=== PATIENT | female | born 1955 | race Hispanic/Latino ===

== ENCOUNTER 2019-10-18 21:30 | Inpatient (IN) | payer MEDICARE ==
[2019-10-19] MEDS ORDERED: ACETAMINOPHEN 325 MG TAB PO PRN (03:09)
[2019-10-19] MEDS ORDERED: MAGNESIUM HYDROXIDE (MOM) ORAL LIQD UDC PO PRN (03:09)
--- NOTE | 2019-10-19 03:22 | History and Physical Report ---
History of Present Illness Date of examination: 10/19/19 Date of admission: 10/19/19 02:50 Chief complaint: Left hip fracture status post surgery History of present illness: Patient is a 64-year-old white female. Referred from [facility] for further care in this facility. She had a fall few days ago and has had surgery at [facility] and currently undergoing some physical therapy. Patient indicates that she was in the bathroom and suddenly slipped and fell resulting in a fracture of her left hip. She denies any headache, denies any head injury, denies any chest pain or shortness of breath, no fever or chills. She complains of having pain on the left hip and has been taking some oral analgesic medication with some relief. Past History Past Medical History: anemia, arthritis, diabetes, hypertension Past Surgical History: hysterectomy Social history: smoking (Less than half a pack of cigarette daily) Family history: no significant family history Medications and Allergies Allergies Allergy/AdvReac Type Severity Reaction Status Date / Time Corticosteroids Allergy Unknown Unknown Verified 10/19/19 04:47 (Glucocorticoids) latex Allergy Unknown Unknown Verified 10/19/19 04:41 prednisone Allergy Unknown Unknown Verified 10/19/19 04:47 Sulfa (Sulfonamide Allergy Unknown Unknown Verified 10/19/19 04:48 Antibiotics) Iodine Allergy Unknown Unknown Uncoded 10/19/19 04:42 Active Meds: Active Medications Acetaminophen (Tylenol) 650 mg PO Q4H PRN PRN Reason: Pain MILD(1-3)/Fever >100.5/[place] Enoxaparin Sodium (Enoxaparin) 40 mg SUB-Q QDAY [facility] Sodium Chloride (Nacl 0.9% 1000 Ml) 1,000 mls @ 75 mls/hr IV DIRECT SALLY Magnesium Hydroxide (Milk Of Magnesia) 30 ml PO Q4H PRN PRN Reason: Constipation Morphine Sulfate (Morphine) 2 mg IV Q4H PRN PRN Reason: Pain, Moderate (4-6) Ondansetron HCl (Zofran) 4 mg IV Q8H PRN PRN Reason: Nausea And Vomiting Sodium Chloride (Sodium Chloride Flush Syringe 10 Ml) 10 ml IV BID SALLY Sodium Chloride (Sodium Chloride Flush Syringe 10 Ml) 10 ml IV PRN PRN PRN Reason: LINE FLUSH Review of Systems Musculoskeletal: other (Left hip pain) Exam - Constitutional General appearance: Present: no acute distress, mild distress (Secondary to pain) - EENT Eyes: Present: PERRL, EOM intact ENT: hearing intact, clear oral mucosa, dentition normal - Neck Neck: Present: supple, normal ROM - Respiratory Respiratory effort: normal Respiratory: bilateral: CTA - Cardiovascular Rhythm: regular Heart Sounds: Present: S1 & S2 - Extremities Extremities: no ischemia, pulses intact, No edema, Full ROM Extremity abnormal: other (Dressing over surgical site on the left hip) Peripheral Pulses: within normal limits - Abdominal General gastrointestinal: Present: soft, non-tender, non-distended - Integumentary Integumentary: Present: clear, warm, dry - Musculoskeletal Musculoskeletal: strength equal bilaterally - Psychiatric Psychiatric: appropriate mood/affect, intact judgment & insight, cooperative - Neurologic Neurologic: CNII-XII intact, moves all extremities Assessment and Plan - Patient Problems (1) Closed left hip fracture Current Visit: Yes Status: Acute Plan to address problem: She is status post surgery. We will place a consult to physical therapy for evaluation and recommendation. (2) Hypertension Current Visit: Yes Status: Acute Plan to address problem: Blood pressure stable we will continue routine home medications. (3) Diabetes mellitus Current Visit: Yes Status: Acute Plan to address problem: We will monitor Accu-Cheks. (4) DVT prophylaxis Current Visit: Yes Status: Acute (5) Full code status Current Visit: Yes Status: Acute
[2019-10-19] MEDS: MORPHINE 2 MG/1 ML INJ IV PRN ×3 (05:22→14:08)
[2019-10-19] MEDS: ONDANSETRON 4 MG/2 ML INJ IV PRN ×2 (05:22→14:08)
[2019-10-19] MEDS: SODIUM CHLORIDE 0.9% 1000 ML 1,000 ML IV SCH ×2 (05:22→17:07)
[2019-10-19 07:26] LABS: Basophils % (Auto) 0.5 % (0.0-1.8); Eosinophils # (Auto) 0.2 K/mm3 (0.0-0.4); Eosinophils % (Auto) 3.8 % (0.0-4.3); Hematocrit 26.9 % (30.3-42.9); Hemoglobin 8.8 gm/dl (10.1-14.3); Lymphocytes # (Auto) 1.6 K/mm3 (1.2-5.4); Lymphocytes % (Auto) 24.6 % (13.4-35.0); Mean Corpuscular HGB Conc 33 % (30-34); Mean Corpuscular Volume 82 fl (79-97); Monocytes # (Auto) 0.4 K/mm3 (0.0-0.8); Monocytes % (Auto) 6.3 % (0.0-7.3); Platelet Count 306 K/mm3 (140-440); Red Blood Count 3.26 M/mm3 (3.65-5.03); Red Cell Distribution Width 16.2 % (13.2-15.2)
[2019-10-19 07:34] LABS: INR 1.03 (0.87-1.13)
[2019-10-19 07:35] LABS: Partial Thromboplastin Time 32.8 Sec. (24.2-36.6)
[2019-10-19 07:48] LABS: BUN/Creatinine Ratio 28; Blood Urea Nitrogen 11 mg/dL (7-17); Calcium 8.5 mg/dL (8.4-10.2); Hemolysis Index 8
[2019-10-19] MEDS: ENOXAPARIN 40 MG/0.4 ML INJ SUB-Q SCH ×2 (09:51→09:55)
--- NOTE | 2019-10-19 11:51 | Progress Note ---
History Interval history: No new issues overnight Hospitalist Physical - Constitutional Vitals: Temp Pulse Resp BP Pulse Ox 98.2 F 69 18 152/68 99 10/19/19 08:00 10/19/19 08:00 10/19/19 08:00 10/19/19 08:00 10/19/19 08:00 General appearance: Present: no acute distress, mild distress (Secondary to pain) Results - Labs CBC & Chem 7: 10/19/19 06:44 10/19/19 06:44 Labs: Laboratory Last Values WBC 6.5 K/mm3 (4.5-11.0) 10/19/19 06:44 RBC 3.26 M/mm3 (3.65-5.03) L 10/19/19 06:44 Hgb 8.8 gm/dl (10.1-14.3) L 10/19/19 06:44 Hct 26.9 % (30.3-42.9) L 10/19/19 06:44 MCV 82 fl (79-97) 10/19/19 06:44 MCH 27 pg (28-32) L 10/19/19 06:44 MCHC 33 % (30-34) 10/19/19 06:44 RDW 16.2 % (13.2-15.2) H 10/19/19 06:44 Plt Count 306 K/mm3 (140-440) 10/19/19 06:44 Lymph % (Auto) 24.6 % (13.4-35.0) 10/19/19 06:44 [place] % (Auto) 6.3 % (0.0-7.3) 10/19/19 06:44 Eos % (Auto) 3.8 % (0.0-4.3) 10/19/19 06:44 Baso % (Auto) 0.5 % (0.0-1.8) 10/19/19 06:44 Lymph # 1.6 K/mm3 (1.2-5.4) 10/19/19 06:44 [place] # 0.4 K/mm3 (0.0-0.8) 10/19/19 06:44 Eos # 0.2 K/mm3 (0.0-0.4) 10/19/19 06:44 Baso # 0.0 K/mm3 (0.0-0.1) 10/19/19 06:44 Seg Neutrophils % 64.8 % (40.0-70.0) 10/19/19 06:44 Seg Neutrophils # 4.2 K/mm3 (1.8-7.7) 10/19/19 06:44 PT 13.6 Sec. (12.2-14.9) 10/19/19 06:44 INR 1.03 (0.87-1.13) 10/19/19 06:44 APTT 32.8 Sec. (24.2-36.6) 10/19/19 06:44 Sodium 136 mmol/L (137-145) L 10/19/19 06:44 Potassium 3.6 mmol/L (3.6-5.0) 10/19/19 06:44 Chloride 103.0 mmol/L (98-107) 10/19/19 06:44 Carbon Dioxide 18 mmol/L (22-30) L 10/19/19 06:44 Anion Gap 19 mmol/L 10/19/19 06:44 BUN 11 mg/dL (7-17) 10/19/19 06:44 Creatinine 0.4 mg/dL (0.7-1.2) L 10/19/19 06:44 Estimated GFR > 60 ml/min 10/19/19 06:44 BUN/Creatinine Ratio 28 % 10/19/19 06:44 Glucose 155 mg/dL (65-100) H 10/19/19 06:44 POC Glucose 171 (70-105) H 10/19/19 08:12 Calcium 8.5 mg/dL (8.4-10.2) 10/19/19 06:44 Active Medications - Current Medications Current Medications: Generic Name Dose Route Start Last Admin Trade Name Freq PRN Reason Stop Dose Admin Acetaminophen 650 mg 10/19/19 03:09 Tylenol PO Q4H PRN Pain MILD(1-3)/Fever >100.5/[place] Enoxaparin Sodium 40 mg 10/19/19 08:00 10/19/19 09:55 Enoxaparin SUB-Q 40 mg QDAY SALLY Administration Sodium Chloride 1,000 mls @ 75 mls/hr 10/19/19 03:15 10/19/19 05:22 Nacl 0.9% 1000 Ml IV 75 mls/hr DIRECT SALLY Administration Magnesium Hydroxide 30 ml 10/19/19 03:09 Milk Of Magnesia PO Q4H PRN Constipation Morphine Sulfate 2 mg 10/19/19 03:09 10/19/19 09:58 Morphine IV 2 mg Q4H PRN Administration Pain, Moderate (4-6) Ondansetron HCl 4 mg 10/19/19 03:09 10/19/19 05:22 Zofran IV 4 mg Q8H PRN Administration Nausea And Vomiting Sodium Chloride 10 ml 10/19/19 08:00 10/19/19 09:56 Sodium Chloride Flush Syringe 10 Ml IV 10 ml BID SALLY Administration Sodium Chloride 10 ml 10/19/19 03:09 Sodium Chloride Flush Syringe 10 Ml IV PRN PRN LINE FLUSH
[2019-10-19] MEDS ORDERED: SUMATRIPTAN SUCCINATE 100 MG PO PRN (12:01)
--- NOTE | 2019-10-19 12:05 | Progress Note ---
Assessment and Plan Assessment and plan: Recent left hip fracture status post surgery. PT/OT. Pain control. Hypertension. Resume antihypertensive medications. Diabetes mellitus type 2. Continue Accu-Cheks and sliding scale insulin. Disposition. Await placement. History Interval history: No new issues overnight Hospitalist Physical - Constitutional Vitals: Temp Pulse Resp BP Pulse Ox 98.2 F 69 18 152/68 99 10/19/19 08:00 10/19/19 08:00 10/19/19 08:00 10/19/19 08:00 10/19/19 08:00 General appearance: Present: no acute distress - EENT Eyes: Present: PERRL, EOM intact ENT: hearing intact, clear oral mucosa, dentition normal - Neck Neck: Present: supple, normal ROM - Respiratory Respiratory effort: normal Respiratory: bilateral: CTA - Cardiovascular Rhythm: regular Heart Sounds: Present: S1 & S2. Absent: gallop, rub - Extremities Extremities: no ischemia, No edema, Full ROM - Abdominal General gastrointestinal: soft, non-tender, non-distended, normal bowel sounds - Integumentary Integumentary: Present: clear, warm, dry - Neurologic Neurologic: CNII-XII intact, moves all extremities Results - Labs CBC & Chem 7: 10/19/19 06:44 10/19/19 06:44 Labs: Laboratory Last Values WBC 6.5 K/mm3 (4.5-11.0) 10/19/19 06:44 RBC 3.26 M/mm3 (3.65-5.03) L 10/19/19 06:44 Hgb 8.8 gm/dl (10.1-14.3) L 10/19/19 06:44 Hct 26.9 % (30.3-42.9) L 10/19/19 06:44 MCV 82 fl (79-97) 10/19/19 06:44 MCH 27 pg (28-32) L 10/19/19 06:44 MCHC 33 % (30-34) 10/19/19 06:44 RDW 16.2 % (13.2-15.2) H 10/19/19 06:44 Plt Count 306 K/mm3 (140-440) 10/19/19 06:44 Lymph % (Auto) 24.6 % (13.4-35.0) 10/19/19 06:44 [place] % (Auto) 6.3 % (0.0-7.3) 10/19/19 06:44 Eos % (Auto) 3.8 % (0.0-4.3) 10/19/19 06:44 Baso % (Auto) 0.5 % (0.0-1.8) 10/19/19 06:44 Lymph # 1.6 K/mm3 (1.2-5.4) 10/19/19 06:44 [place] # 0.4 K/mm3 (0.0-0.8) 10/19/19 06:44 Eos # 0.2 K/mm3 (0.0-0.4) 10/19/19 06:44 Baso # 0.0 K/mm3 (0.0-0.1) 10/19/19 06:44 Seg Neutrophils % 64.8 % (40.0-70.0) 10/19/19 06:44 Seg Neutrophils # 4.2 K/mm3 (1.8-7.7) 10/19/19 06:44 PT 13.6 Sec. (12.2-14.9) 10/19/19 06:44 INR 1.03 (0.87-1.13) 10/19/19 06:44 APTT 32.8 Sec. (24.2-36.6) 10/19/19 06:44 Sodium 136 mmol/L (137-145) L 10/19/19 06:44 Potassium 3.6 mmol/L (3.6-5.0) 10/19/19 06:44 Chloride 103.0 mmol/L (98-107) 10/19/19 06:44 Carbon Dioxide 18 mmol/L (22-30) L 10/19/19 06:44 Anion Gap 19 mmol/L 10/19/19 06:44 BUN 11 mg/dL (7-17) 10/19/19 06:44 Creatinine 0.4 mg/dL (0.7-1.2) L 10/19/19 06:44 Estimated GFR > 60 ml/min 10/19/19 06:44 BUN/Creatinine Ratio 28 % 10/19/19 06:44 Glucose 155 mg/dL (65-100) H 10/19/19 06:44 POC Glucose 200 (70-105) H 10/19/19 11:34 Calcium 8.5 mg/dL (8.4-10.2) 10/19/19 06:44 Active Medications - Current Medications Current Medications: Generic Name Dose Route Start Last Admin Trade Name Freq PRN Reason Stop Dose Admin Acetaminophen 650 mg 10/19/19 03:09 Tylenol PO Q4H PRN Pain MILD(1-3)/Fever >100.5/[place] Enoxaparin Sodium 40 mg 10/19/19 08:00 10/19/19 09:55 Enoxaparin SUB-Q 40 mg QDAY SALLY Administration Sodium Chloride 1,000 mls @ 75 mls/hr 10/19/19 03:15 10/19/19 05:22 Nacl 0.9% 1000 Ml IV 75 mls/hr DIRECT SALLY Administration Magnesium Hydroxide 30 ml 10/19/19 03:09 Milk Of Magnesia PO Q4H PRN Constipation Morphine Sulfate 2 mg 10/19/19 03:09 10/19/19 09:58 Morphine IV 2 mg Q4H PRN Administration Pain, Moderate (4-6) Ondansetron HCl 4 mg 10/19/19 03:09 10/19/19 05:22 Zofran IV 4 mg Q8H PRN Administration Nausea And Vomiting Sodium Chloride 10 ml 10/19/19 08:00 10/19/19 09:56 Sodium Chloride Flush Syringe 10 Ml IV 10 ml BID SALLY Administration Sodium Chloride 10 ml 10/19/19 03:09 Sodium Chloride Flush Syringe 10 Ml IV PRN PRN LINE FLUSH
[2019-10-19] MEDS: oxyCODONE /ACETAMINOPHEN 5-325MG TAB PO PRN ×3 (13:15→22:07)
[2019-10-19] MEDS ORDERED: SUMAtriptan SUCCINATE 50 MG TAB PO PRN (13:18)
[2019-10-19] MEDS: glipiZIDE 5 MG TAB PO SCH (17:01)
[2019-10-19] MEDS: metFORMIN 500 MG TAB PO SCH (17:01)
[2019-10-19] MEDS: PANTOPRAZOLE 20 MG TAB PO SCH (17:13)
[2019-10-19] MEDS ORDERED: NON-FORMULARY EACH (Montelukast 10 MG) PO SCH (22:00)
[2019-10-19] MEDS ORDERED: NON-FORMULARY EACH (Metformin 1,000 MG) PO SCH (22:00)
[2019-10-19] MEDS ORDERED: SENNOSIDES 8.6 MG PO SCH (22:00)
[2019-10-19] MEDS: SENNOSIDES 8.6 MG TAB PO SCH (22:07)
[2019-10-19] MEDS: TOPIRAMATE TAB 100 MG TAB PO SCH (22:07)
[2019-10-19] MEDS: MONTELUKAST 10 MG TAB PO SCH (22:07)
[2019-10-20] MEDS: MORPHINE 2 MG/1 ML INJ IV PRN ×3 (01:33→10:17)
[2019-10-20] MEDS: oxyCODONE /ACETAMINOPHEN 5-325MG TAB PO PRN ×4 (04:36→22:33)
[2019-10-20] MEDS: SODIUM CHLORIDE 0.9% 1000 ML 1,000 ML IV SCH ×2 (04:41→17:32)
[2019-10-20] MEDS: metFORMIN 500 MG TAB PO SCH ×2 (08:30→17:31)
[2019-10-20] MEDS: glipiZIDE 5 MG TAB PO SCH ×2 (08:38→17:31)
[2019-10-20] MEDS ORDERED: NON-FORMULARY EACH (Lisinopril 2.5 MG) PO SCH (10:00)
[2019-10-20] MEDS ORDERED: NON-FORMULARY EACH (Cymbalta 30 MG) PO SCH (10:00)
[2019-10-20] MEDS ORDERED: PANTOPRAZOLE 20 MG TAB PO SCH (10:00)
[2019-10-20] MEDS: SENNOSIDES 8.6 MG TAB PO SCH ×2 (10:15→22:31)
[2019-10-20] MEDS: DULoxetine 30 MG CAP PO SCH (10:15)
[2019-10-20] MEDS: PANTOPRAZOLE 20 MG TAB PO SCH (10:15)
[2019-10-20] MEDS: TOPIRAMATE TAB 100 MG TAB PO SCH ×2 (10:15→22:32)
[2019-10-20] MEDS: ASPIRIN EC 81 MG TAB PO SCH ×2 (10:16→10:34)
[2019-10-20] MEDS: LISINOPRIL 5 MG TAB PO SCH (10:16)
[2019-10-20] MEDS: ENOXAPARIN 40 MG/0.4 ML INJ SUB-Q SCH (10:17)
--- NOTE | 2019-10-20 12:58 | Progress Note ---
Assessment and Plan Assessment and plan: Recent left hip fracture status post surgery. PT/OT. Pain control. Hypertension. Resume antihypertensive medications. Diabetes mellitus type 2. Continue Accu-Cheks and sliding scale insulin. Disposition. Await placement. History Interval history: Patient continues to complain of pain Hospitalist Physical - Constitutional Vitals: Temp Pulse Resp BP Pulse Ox 97.6 F 73 16 177/82 100 10/20/19 11:07 10/20/19 11:07 10/20/19 11:07 10/20/19 11:07 10/20/19 11:07 General appearance: Present: no acute distress - EENT Eyes: Present: PERRL, EOM intact ENT: hearing intact, clear oral mucosa, dentition normal - Neck Neck: Present: supple, normal ROM - Respiratory Respiratory effort: normal Respiratory: bilateral: CTA - Cardiovascular Rhythm: regular Heart Sounds: Present: S1 & S2. Absent: gallop, rub - Extremities Extremities: no ischemia, No edema, Full ROM - Abdominal General gastrointestinal: soft, non-tender, non-distended, normal bowel sounds - Integumentary Integumentary: Present: clear, warm, dry - Neurologic Neurologic: CNII-XII intact, moves all extremities Results - Labs CBC & Chem 7: 10/19/19 06:44 10/19/19 06:44 Labs: Laboratory Last Values WBC 6.5 K/mm3 (4.5-11.0) 10/19/19 06:44 RBC 3.26 M/mm3 (3.65-5.03) L 10/19/19 06:44 Hgb 8.8 gm/dl (10.1-14.3) L 10/19/19 06:44 Hct 26.9 % (30.3-42.9) L 10/19/19 06:44 MCV 82 fl (79-97) 10/19/19 06:44 MCH 27 pg (28-32) L 10/19/19 06:44 MCHC 33 % (30-34) 10/19/19 06:44 RDW 16.2 % (13.2-15.2) H 10/19/19 06:44 Plt Count 306 K/mm3 (140-440) 10/19/19 06:44 Lymph % (Auto) 24.6 % (13.4-35.0) 10/19/19 06:44 [place] % (Auto) 6.3 % (0.0-7.3) 10/19/19 06:44 Eos % (Auto) 3.8 % (0.0-4.3) 10/19/19 06:44 Baso % (Auto) 0.5 % (0.0-1.8) 10/19/19 06:44 Lymph # 1.6 K/mm3 (1.2-5.4) 10/19/19 06:44 [place] # 0.4 K/mm3 (0.0-0.8) 10/19/19 06:44 Eos # 0.2 K/mm3 (0.0-0.4) 10/19/19 06:44 Baso # 0.0 K/mm3 (0.0-0.1) 10/19/19 06:44 Seg Neutrophils % 64.8 % (40.0-70.0) 10/19/19 06:44 Seg Neutrophils # 4.2 K/mm3 (1.8-7.7) 10/19/19 06:44 PT 13.6 Sec. (12.2-14.9) 10/19/19 06:44 INR 1.03 (0.87-1.13) 10/19/19 06:44 APTT 32.8 Sec. (24.2-36.6) 10/19/19 06:44 Sodium 136 mmol/L (137-145) L 10/19/19 06:44 Potassium 3.6 mmol/L (3.6-5.0) 10/19/19 06:44 Chloride 103.0 mmol/L (98-107) 10/19/19 06:44 Carbon Dioxide 18 mmol/L (22-30) L 10/19/19 06:44 Anion Gap 19 mmol/L 10/19/19 06:44 BUN 11 mg/dL (7-17) 10/19/19 06:44 Creatinine 0.4 mg/dL (0.7-1.2) L 10/19/19 06:44 Estimated GFR > 60 ml/min 10/19/19 06:44 BUN/Creatinine Ratio 28 % 10/19/19 06:44 Glucose 155 mg/dL (65-100) H 10/19/19 06:44 POC Glucose 187 (70-105) H 10/20/19 11:38 Calcium 8.5 mg/dL (8.4-10.2) 10/19/19 06:44 Active Medications - Current Medications Current Medications: Generic Name Dose Route Start Last Admin Trade Name Freq PRN Reason Stop Dose Admin Acetaminophen 650 mg 10/19/19 03:09 Tylenol PO Q4H PRN Pain MILD(1-3)/Fever >100.5/[place] Aspirin 81 mg 10/20/19 10:00 10/20/19 10:34 Halfprin Ec PO Not Given QDAY SALLY Duloxetine HCl 30 mg 10/20/19 10:00 10/20/19 10:15 Cymbalta PO Not Given QDAY SALLY Enoxaparin Sodium 40 mg 10/19/19 08:00 10/20/19 10:17 Enoxaparin SUB-Q 40 mg QDAY SALLY Administration Glipizide 5 mg 10/19/19 17:00 10/20/19 08:38 Glucotrol PO 5 mg BIDDIAB SALLY Administration Sodium Chloride 1,000 mls @ 75 mls/hr 10/19/19 03:15 10/20/19 04:41 Nacl 0.9% 1000 Ml IV 75 mls/hr DIRECT SALLY Administration Lisinopril 2.5 mg 10/20/19 10:00 10/20/19 10:16 Zestril PO 2.5 mg QDAY SALLY Administration Magnesium Hydroxide 30 ml 10/19/19 03:09 Milk Of Magnesia PO Q4H PRN Constipation Metformin HCl 1,000 mg 10/19/19 17:00 10/20/19 08:30 Glucophage PO 1,000 mg BIDDIAB SALLY Administration Methocarbamol 750 mg 10/19/19 14:00 10/20/19 08:38 Robaxin PO 750 mg TID SALLY Administration Montelukast Sodium 10 mg 10/19/19 22:00 10/19/19 22:07 Singulair PO 10 mg QHS SALLY Administration Morphine Sulfate 2 mg 10/19/19 03:09 10/20/19 10:17 Morphine IV 2 mg Q4H PRN Administration Pain, Moderate (4-6) Ondansetron HCl 4 mg 10/19/19 03:09 10/19/19 14:08 Zofran IV 4 mg Q8H PRN Administration Nausea And Vomiting Oxycodone/Acetaminophen 1 tab 10/19/19 12:01 10/20/19 12:36 Percocet 5/325 PO 1 tab Q4HR PRN Administration Pain , Severe (7-10) Pantoprazole Sodium 20 mg 10/19/19 13:58 10/20/19 10:15 Protonix PO 20 mg QDAY SALLY Administration Senna 8.6 mg 10/19/19 22:00 10/20/19 10:15 Senokot PO 8.6 mg BID SALLY Administration Sodium Chloride 10 ml 10/19/19 08:00 10/20/19 10:22 Sodium Chloride Flush Syringe 10 Ml IV Not Given BID SALLY Sodium Chloride 10 ml 10/19/19 03:09 Sodium Chloride Flush Syringe 10 Ml IV PRN PRN LINE FLUSH Sumatriptan Succinate 100 mg 10/19/19 13:18 Imitrex PO Q24H PRN Migraine Headache Topiramate 100 mg 10/19/19 22:00 10/20/19 10:15 Topamax PO 100 mg BID SALLY Administration Nutrition/Malnutrition Assess - Dietary Evaluation Nutrition/Malnutrition Findings: Nutrition Notes Start: 10/19/19 11:43 Freq: Status: Active Protocol: Document 10/19/19 11:45 PS (Rec: 10/19/19 12:43 PS [id number]) Co-Sign 10/19/19 11:45 LM Nutrition Notes Need for Assessment generated from: Low BMI Initial or Follow up Assessment Current Diagnosis Diabetes,Hypertension Other Pertinent Diagnosis anemia, arthritis, DVT prophylaxis Current Diet Consistent Carbohydrate Labs/Tests Na 136 Cr 0.4 Glu 155 Pertinent Medications Zofran Milk of Magnesia Height 5 ft 2 in Weight 44.5 kg Usual Body Weight 49 kg [place] Body Weight (kg) 50.00 BMI 17.9 Intake Prior to Admission Poor Weight change and time frame 10 lbs in 1 month Weight Status Underweight Subjective/Other Information Pt. stated she has not been eating well [employer] d/t nausea and that she has lost 10 lbs in the last month. Pt. wants to eat but ate 0% of breakfast d/ t nausea. ONS were offered but pt. denied. Burn Absent Trauma Absent GI Symptoms Nausea Current % PO Poor (25-49%) Minimum of two criteria Yes Energy Intake (severe) < or equal to 50% Estimated Energy Requirement > or equal to 5 days Interpretation of Weight Loss (severe) >5% in 1 month Body Fat Depletion Moderate depletion (severe) Muscle Mass Mild Depletion (non-severe) #2 Nutrition Diagnosis Malnutrition Etiology nausea and recent surgery As Evidenced by Signs and Symptoms < or equal to 50% of estimated energy needs in > or equal to 5 days. >5% wt loss in 1 month and moderate body fat depletion and mild muscle depletion #1 Nutrition Diagnosis Inadequate energy intake Etiology nausea As Evidenced by Signs and Symptoms pt. eating <50% of meals for > 5 days and 10 lb wt loss in 1 month Is patient on ventilator? No Is Patient Ambulatory and/or Out of Bed Yes REE-([facility]-ambulatory/OOB) [ 1226.225 [id number]] Kcal/Kg value to use for calculation 39 Approximate Energy Requirements Using 1736 kcal/Kg Additional Notes Pro: 45 - 53 (1-1.2 g/kg) Fluids: 1 ml/kcal Nutrition Intervention Change Diet Order: Continue Current Diet Goal #1 Meet 75% of energy/protein needs Anticipated Discharge Needs: Consistent Carbohydrate Diet Follow-Up By: 10/24/19 Additional Comments Follow up for PO intakes
[2019-10-20] MEDS: MONTELUKAST 10 MG TAB PO SCH (22:31)
[2019-10-21] MEDS: ONDANSETRON 4 MG/2 ML INJ IV PRN ×3 (01:13→17:11)
[2019-10-21] MEDS: oxyCODONE /ACETAMINOPHEN 5-325MG TAB PO PRN ×5 (03:40→21:45)
[2019-10-21 06:06] LABS: Basophils % (Auto) 0.6 % (0.0-1.8); Eosinophils # (Auto) 0.2 K/mm3 (0.0-0.4); Eosinophils % (Auto) 4.1 % (0.0-4.3); Hematocrit 24.5 % (30.3-42.9); Hemoglobin 8.1 gm/dl (10.1-14.3); Lymphocytes # (Auto) 1.4 K/mm3 (1.2-5.4); Lymphocytes % (Auto) 23.5 % (13.4-35.0); Mean Corpuscular HGB Conc 33 % (30-34); Mean Corpuscular Volume 82 fl (79-97); Monocytes # (Auto) 0.4 K/mm3 (0.0-0.8); Monocytes % (Auto) 6.5 % (0.0-7.3); Platelet Count 374 K/mm3 (140-440); Red Blood Count 2.99 M/mm3 (3.65-5.03); Red Cell Distribution Width 16.3 % (13.2-15.2)
[2019-10-21 06:24] LABS: BUN/Creatinine Ratio 33; Blood Urea Nitrogen 13 mg/dL (7-17); Calcium 8.1 mg/dL (8.4-10.2); Hemolysis Index 0
[2019-10-21] MEDS: PANTOPRAZOLE 20 MG TAB PO SCH ×2 (08:33→10:00)
[2019-10-21] MEDS: metFORMIN 500 MG TAB PO SCH ×2 (08:33→17:11)
[2019-10-21] MEDS: glipiZIDE 5 MG TAB PO SCH ×2 (08:33→17:11)
[2019-10-21] MEDS: LISINOPRIL 5 MG TAB PO SCH ×2 (08:34→10:00)
[2019-10-21] MEDS: TOPIRAMATE TAB 100 MG TAB PO SCH ×3 (08:35→21:46)
[2019-10-21] MEDS: ENOXAPARIN 40 MG/0.4 ML INJ SUB-Q SCH ×2 (08:37→10:00)
[2019-10-21] MEDS: SENNOSIDES 8.6 MG TAB PO SCH ×2 (09:13→21:45)
[2019-10-21] MEDS: DULoxetine 30 MG CAP PO SCH (09:14)
[2019-10-21] MEDS: ASPIRIN EC 81 MG TAB PO SCH (09:16)
--- NOTE | 2019-10-21 11:17 | Progress Note ---
Assessment and Plan Assessment and plan: Recent left hip fracture status post surgery. PT/OT. Pain control. Hypertension. Resume antihypertensive medications. Diabetes mellitus type 2. Continue Accu-Cheks and sliding scale insulin. Disposition. Await placement. History Interval history: Patient continues to complain of pain Hospitalist Physical - Constitutional Vitals: Temp Pulse Resp BP Pulse Ox 98.0 F 68 18 134/69 100 10/21/19 07:14 10/21/19 08:34 10/21/19 07:14 10/21/19 08:34 10/21/19 07:14 General appearance: Present: no acute distress - EENT Eyes: Present: PERRL, EOM intact ENT: hearing intact, clear oral mucosa, dentition normal - Neck Neck: Present: supple, normal ROM - Respiratory Respiratory effort: normal Respiratory: bilateral: CTA - Cardiovascular Rhythm: regular Heart Sounds: Present: S1 & S2. Absent: gallop, rub - Extremities Extremities: no ischemia, No edema, Full ROM - Abdominal General gastrointestinal: soft, non-tender, non-distended, normal bowel sounds - Integumentary Integumentary: Present: clear, warm, dry - Neurologic Neurologic: CNII-XII intact, moves all extremities Results - Labs CBC & Chem 7: 10/21/19 05:50 10/21/19 05:50 Labs: Laboratory Last Values WBC 6.1 K/mm3 (4.5-11.0) 10/21/19 05:50 RBC 2.99 M/mm3 (3.65-5.03) L 10/21/19 05:50 Hgb 8.1 gm/dl (10.1-14.3) L 10/21/19 05:50 Hct 24.5 % (30.3-42.9) L 10/21/19 05:50 MCV 82 fl (79-97) 10/21/19 05:50 MCH 27 pg (28-32) L 10/21/19 05:50 MCHC 33 % (30-34) 10/21/19 05:50 RDW 16.3 % (13.2-15.2) H 10/21/19 05:50 Plt Count 374 K/mm3 (140-440) 10/21/19 05:50 Lymph % (Auto) 23.5 % (13.4-35.0) 10/21/19 05:50 [place] % (Auto) 6.5 % (0.0-7.3) 10/21/19 05:50 Eos % (Auto) 4.1 % (0.0-4.3) 10/21/19 05:50 Baso % (Auto) 0.6 % (0.0-1.8) 10/21/19 05:50 Lymph # 1.4 K/mm3 (1.2-5.4) 10/21/19 05:50 [place] # 0.4 K/mm3 (0.0-0.8) 10/21/19 05:50 Eos # 0.2 K/mm3 (0.0-0.4) 10/21/19 05:50 Baso # 0.0 K/mm3 (0.0-0.1) 10/21/19 05:50 Seg Neutrophils % 65.3 % (40.0-70.0) 10/21/19 05:50 Seg Neutrophils # 4.0 K/mm3 (1.8-7.7) 10/21/19 05:50 PT 13.6 Sec. (12.2-14.9) 10/19/19 06:44 INR 1.03 (0.87-1.13) 10/19/19 06:44 APTT 32.8 Sec. (24.2-36.6) 10/19/19 06:44 Sodium 137 mmol/L (137-145) 10/21/19 05:50 Potassium 3.4 mmol/L (3.6-5.0) L 10/21/19 05:50 Chloride 108.4 mmol/L (98-107) H 10/21/19 05:50 Carbon Dioxide 18 mmol/L (22-30) L 10/21/19 05:50 Anion Gap 14 mmol/L 10/21/19 05:50 BUN 13 mg/dL (7-17) 10/21/19 05:50 Creatinine 0.4 mg/dL (0.7-1.2) L 10/21/19 05:50 Estimated GFR > 60 ml/min 10/21/19 05:50 BUN/Creatinine Ratio 33 % 10/21/19 05:50 Glucose 209 mg/dL (65-100) H 10/21/19 05:50 POC Glucose 186 (70-105) H 10/21/19 11:17 Calcium 8.1 mg/dL (8.4-10.2) L 10/21/19 05:50 Active Medications - Current Medications Current Medications: Generic Name Dose Route Start Last Admin Trade Name Freq PRN Reason Stop Dose Admin Acetaminophen 650 mg 10/19/19 03:09 Tylenol PO Q4H PRN Pain MILD(1-3)/Fever >100.5/[place] Aspirin 81 mg 10/20/19 10:00 10/21/19 09:16 Halfprin Ec PO Not Given QDAY SALLY Duloxetine HCl 30 mg 10/20/19 10:00 10/21/19 09:14 Cymbalta PO Not Given QDAY SALLY Enoxaparin Sodium 40 mg 10/19/19 08:00 10/21/19 08:37 Enoxaparin SUB-Q 40 mg QDAY SALLY Administration Glipizide 5 mg 10/19/19 17:00 10/21/19 08:33 Glucotrol PO 5 mg BIDDIAB SALLY Administration Sodium Chloride 1,000 mls @ 75 mls/hr 10/19/19 03:15 10/21/19 07:06 Nacl 0.9% 1000 Ml IV Infused DIRECT SALLY Infusion Lisinopril 2.5 mg 10/20/19 10:00 10/21/19 08:34 Zestril PO 2.5 mg QDAY SALLY Administration Magnesium Hydroxide 30 ml 10/19/19 03:09 Milk Of Magnesia PO Q4H PRN Constipation Metformin HCl 1,000 mg 10/19/19 17:00 10/21/19 08:33 Glucophage PO 1,000 mg BIDDIAB SALLY Administration Methocarbamol 750 mg 10/19/19 14:00 10/21/19 08:33 Robaxin PO 750 mg TID SALLY Administration Montelukast Sodium 10 mg 10/19/19 22:00 10/20/19 22:31 Singulair PO 10 mg QHS SALLY Administration Morphine Sulfate 2 mg 10/19/19 03:09 10/20/19 10:17 Morphine IV 2 mg Q4H PRN Administration Pain, Moderate (4-6) Ondansetron HCl 4 mg 10/19/19 03:09 10/21/19 09:06 Zofran IV 4 mg Q8H PRN Administration Nausea And Vomiting Oxycodone/Acetaminophen 2 tab 10/20/19 12:56 10/21/19 09:05 Percocet 5/325 PO 2 tab Q4H PRN Administration Pain, Moderate (4-6) Pantoprazole Sodium 20 mg 10/19/19 13:58 10/21/19 08:33 Protonix PO 20 mg QDAY SALLY Administration Senna 8.6 mg 10/19/19 22:00 10/21/19 09:13 Senokot PO 8.6 mg BID SALLY Administration Sodium Chloride 10 ml 10/19/19 08:00 10/20/19 22:33 Sodium Chloride Flush Syringe 10 Ml IV 10 ml BID SALLY Administration Sodium Chloride 10 ml 10/19/19 03:09 Sodium Chloride Flush Syringe 10 Ml IV PRN PRN LINE FLUSH Sumatriptan Succinate 100 mg 10/19/19 13:18 Imitrex PO Q24H PRN Migraine Headache Topiramate 100 mg 10/19/19 22:00 10/21/19 08:35 Topamax PO 100 mg BID SALLY Administration Nutrition/Malnutrition Assess - Dietary Evaluation Nutrition/Malnutrition Findings: Nutrition Notes Start: 10/19/19 11:43 Freq: Status: Active Protocol: Document 10/19/19 11:45 PS (Rec: 10/19/19 12:43 PS [email or web address]) Co-Sign 10/19/19 11:45 LM Nutrition Notes Need for Assessment generated from: Low BMI Initial or Follow up Assessment Current Diagnosis Diabetes,Hypertension Other Pertinent Diagnosis anemia, arthritis, DVT prophylaxis Current Diet Consistent Carbohydrate Labs/Tests Na 136 Cr 0.4 Glu 155 Pertinent Medications Zofran Milk of Magnesia Height 5 ft 2 in Weight 44.5 kg Usual Body Weight 49 kg [place] Body Weight (kg) 50.00 BMI 17.9 Intake Prior to Admission Poor Weight change and time frame 10 lbs in 1 month Weight Status Underweight Subjective/Other Information 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 Pt. wants to eat but ate 0% of breakfast d/ t nausea. ONS were offered but pt. denied. Burn Absent Trauma Absent GI Symptoms Nausea Current % PO Poor (25-49%) Minimum of two criteria Yes Energy Intake (severe) < or equal to 50% Estimated Energy Requirement > or equal to 5 days Interpretation of Weight Loss (severe) >5% in 1 month Body Fat Depletion Moderate depletion (severe) Muscle Mass Mild Depletion (non-severe) #2 Nutrition Diagnosis Malnutrition Etiology nausea and recent surgery As Evidenced by Signs and Symptoms < or equal to 50% of estimated energy needs in > or equal to 5 days. >5% wt loss in 1 month and moderate body fat depletion and mild muscle depletion #1 Nutrition Diagnosis Inadequate energy intake Etiology nausea As Evidenced by Signs and Symptoms pt. eating <50% of meals for > 5 days and 10 lb wt loss in 1 month Is patient on ventilator? No Is Patient Ambulatory and/or Out of Bed Yes REE-([facility]-ambulatory/OOB) [ 1226.225 NUTR.[id number]] Kcal/Kg value to use for calculation 39 Approximate Energy Requirements Using 1736 kcal/Kg Additional Notes Pro: 45 - 53 (1-1.2 g/kg) Fluids: 1 ml/kcal Nutrition Intervention Change Diet Order: Continue Current Diet Goal #1 Meet 75% of energy/protein needs Anticipated Discharge Needs: Consistent Carbohydrate Diet Follow-Up By: 10/24/19 Additional Comments Follow up for PO intakes
[2019-10-21] MEDS: SODIUM CHLORIDE 0.9% 1000 ML 1,000 ML IV SCH (16:15)
[2019-10-21] MEDS: MONTELUKAST 10 MG TAB PO SCH (21:45)
[2019-10-22] MEDS: oxyCODONE /ACETAMINOPHEN 5-325MG TAB PO PRN ×6 (01:48→22:03)
[2019-10-22] MEDS: SODIUM CHLORIDE 0.9% 1000 ML 1,000 ML IV SCH ×2 (06:24→22:04)
[2019-10-22] MEDS: metFORMIN 500 MG TAB PO SCH ×2 (08:44→16:22)
[2019-10-22] MEDS: glipiZIDE 5 MG TAB PO SCH ×2 (08:45→16:21)
--- NOTE | 2019-10-22 10:11 | Progress Note ---
Assessment and Plan Assessment and plan: Recent left hip fracture status post surgery. PT/OT. Pain control. Diarrhea. Check stool studies. Hypertension. Resume antihypertensive medications. Diabetes mellitus type 2. Continue Accu-Cheks and sliding scale insulin. Disposition. Await placement. History Interval history: Patient continues to complain of pain Hospitalist Physical - Constitutional Vitals: Temp Pulse Resp BP Pulse Ox 98.1 F 68 17 121/59 99 10/22/19 07:18 10/22/19 07:18 10/22/19 07:29 10/22/19 07:18 10/22/19 07:18 General appearance: Present: no acute distress - EENT Eyes: Present: PERRL, EOM intact ENT: hearing intact, clear oral mucosa, dentition normal - Neck Neck: Present: supple, normal ROM - Respiratory Respiratory effort: normal Respiratory: bilateral: CTA - Cardiovascular Rhythm: regular Heart Sounds: Present: S1 & S2. Absent: gallop, rub - Extremities Extremities: no ischemia, No edema, Full ROM - Abdominal General gastrointestinal: soft, non-tender, non-distended, normal bowel sounds - Integumentary Integumentary: Present: clear, warm, dry - Neurologic Neurologic: CNII-XII intact, moves all extremities Results - Labs CBC & Chem 7: 10/21/19 05:50 10/21/19 05:50 Labs: Laboratory Last Values WBC 6.1 K/mm3 (4.5-11.0) 10/21/19 05:50 RBC 2.99 M/mm3 (3.65-5.03) L 10/21/19 05:50 Hgb 8.1 gm/dl (10.1-14.3) L 10/21/19 05:50 Hct 24.5 % (30.3-42.9) L 10/21/19 05:50 MCV 82 fl (79-97) 10/21/19 05:50 MCH 27 pg (28-32) L 10/21/19 05:50 MCHC 33 % (30-34) 10/21/19 05:50 RDW 16.3 % (13.2-15.2) H 10/21/19 05:50 Plt Count 374 K/mm3 (140-440) 10/21/19 05:50 Lymph % (Auto) 23.5 % (13.4-35.0) 10/21/19 05:50 [place] % (Auto) 6.5 % (0.0-7.3) 10/21/19 05:50 Eos % (Auto) 4.1 % (0.0-4.3) 10/21/19 05:50 Baso % (Auto) 0.6 % (0.0-1.8) 10/21/19 05:50 Lymph # 1.4 K/mm3 (1.2-5.4) 10/21/19 05:50 [place] # 0.4 K/mm3 (0.0-0.8) 10/21/19 05:50 Eos # 0.2 K/mm3 (0.0-0.4) 10/21/19 05:50 Baso # 0.0 K/mm3 (0.0-0.1) 10/21/19 05:50 Seg Neutrophils % 65.3 % (40.0-70.0) 10/21/19 05:50 Seg Neutrophils # 4.0 K/mm3 (1.8-7.7) 10/21/19 05:50 PT 13.6 Sec. (12.2-14.9) 10/19/19 06:44 INR 1.03 (0.87-1.13) 10/19/19 06:44 APTT 32.8 Sec. (24.2-36.6) 10/19/19 06:44 Sodium 137 mmol/L (137-145) 10/21/19 05:50 Potassium 3.4 mmol/L (3.6-5.0) L 10/21/19 05:50 Chloride 108.4 mmol/L (98-107) H 10/21/19 05:50 Carbon Dioxide 18 mmol/L (22-30) L 10/21/19 05:50 Anion Gap 14 mmol/L 10/21/19 05:50 BUN 13 mg/dL (7-17) 10/21/19 05:50 Creatinine 0.4 mg/dL (0.7-1.2) L 10/21/19 05:50 Estimated GFR > 60 ml/min 10/21/19 05:50 BUN/Creatinine Ratio 33 % 10/21/19 05:50 Glucose 209 mg/dL (65-100) H 10/21/19 05:50 POC Glucose 195 (70-105) H 10/22/19 07:30 Calcium 8.1 mg/dL (8.4-10.2) L 10/21/19 05:50 Active Medications - Current Medications Current Medications: Generic Name Dose Route Start Last Admin Trade Name Freq PRN Reason Stop Dose Admin Acetaminophen 650 mg 10/19/19 03:09 Tylenol PO Q4H PRN Pain MILD(1-3)/Fever >100.5/[place] Aspirin 81 mg 10/20/19 10:00 10/21/19 09:16 Halfprin Ec PO Not Given QDAY [facility] Duloxetine HCl 30 mg 10/20/19 10:00 10/21/19 09:14 Cymbalta PO Not Given QDAY [facility] Enoxaparin Sodium 40 mg 10/19/19 08:00 10/21/19 10:00 Enoxaparin SUB-Q Not Given QDAY [facility] Glipizide 5 mg 10/19/19 17:00 10/22/19 08:45 Glucotrol PO 5 mg BIDDIAB SALLY Administration Sodium Chloride 1,000 mls @ 75 mls/hr 10/19/19 03:15 10/22/19 06:24 Nacl 0.9% 1000 Ml IV 75 mls/hr DIRECT SALLY Administration Lisinopril 2.5 mg 10/20/19 10:00 10/21/19 10:00 Zestril PO Not Given QDAY [facility] Magnesium Hydroxide 30 ml 10/19/19 03:09 Milk Of Magnesia PO Q4H PRN Constipation Metformin HCl 1,000 mg 10/19/19 17:00 10/22/19 08:44 Glucophage PO 1,000 mg BIDDIAB SALLY Administration Methocarbamol 750 mg 10/19/19 14:00 10/22/19 08:45 Robaxin PO 750 mg TID SALLY Administration Montelukast Sodium 10 mg 10/19/19 22:00 10/21/19 21:45 Singulair PO 10 mg QHS SALLY Administration Morphine Sulfate 2 mg 10/19/19 03:09 10/20/19 10:17 Morphine IV 2 mg Q4H PRN Administration Pain, Moderate (4-6) Ondansetron HCl 4 mg 10/19/19 03:09 10/21/19 17:11 Zofran IV 4 mg Q8H PRN Administration Nausea And Vomiting Oxycodone/Acetaminophen 2 tab 10/20/19 12:56 10/22/19 06:29 Percocet 5/325 PO 2 tab Q4H PRN Administration Pain, Moderate (4-6) Pantoprazole Sodium 20 mg 10/19/19 13:58 10/21/19 10:00 Protonix PO Not Given QDAY SALLY Senna 8.6 mg 10/19/19 22:00 10/21/19 21:45 Senokot PO 8.6 mg BID SALLY Administration Sodium Chloride 10 ml 10/19/19 08:00 10/21/19 21:50 Sodium Chloride Flush Syringe 10 Ml IV 10 ml BID SALLY Administration Sodium Chloride 10 ml 10/19/19 03:09 Sodium Chloride Flush Syringe 10 Ml IV PRN PRN LINE FLUSH Sumatriptan Succinate 100 mg 10/19/19 13:18 Imitrex PO Q24H PRN Migraine Headache Topiramate 100 mg 10/19/19 22:00 10/21/19 21:46 Topamax PO 100 mg BID SALLY Administration Nutrition/Malnutrition Assess - Dietary Evaluation Nutrition/Malnutrition Findings: Nutrition Notes Start: 10/19/19 11:43 Freq: Status: Active Protocol: Document 10/19/19 11:45 PS (Rec: 10/19/19 12:43 PS [id number]) Co-Sign 10/19/19 11:45 LM Nutrition Notes Need for Assessment generated from: Low BMI Initial or Follow up Assessment Current Diagnosis Diabetes,Hypertension Other Pertinent Diagnosis anemia, arthritis, DVT prophylaxis Current Diet Consistent Carbohydrate Labs/Tests Na 136 Cr 0.4 Glu 155 Pertinent Medications Zofran Milk of Magnesia Height 5 ft 2 in Weight 44.5 kg Usual Body Weight 49 kg [place] Body Weight (kg) 50.00 BMI 17.9 Intake Prior to Admission Poor Weight change and time frame 10 lbs in 1 month Weight Status Underweight Subjective/Other Information 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 Pt. wants to eat but ate 0% of breakfast d/ t nausea. ONS were offered but pt. denied. Burn Absent Trauma Absent GI Symptoms Nausea Current % PO Poor (25-49%) Minimum of two criteria Yes Energy Intake (severe) < or equal to 50% Estimated Energy Requirement > or equal to 5 days Interpretation of Weight Loss (severe) >5% in 1 month Body Fat Depletion Moderate depletion (severe) Muscle Mass Mild Depletion (non-severe) #2 Nutrition Diagnosis Malnutrition Etiology nausea and recent surgery As Evidenced by Signs and Symptoms < or equal to 50% of estimated energy needs in > or equal to 5 days. >5% wt loss in 1 month and moderate body fat depletion and mild muscle depletion #1 Nutrition Diagnosis Inadequate energy intake Etiology nausea As Evidenced by Signs and Symptoms pt. eating <50% of meals for > 5 days and 10 lb wt loss in 1 month Is patient on ventilator? No Is Patient Ambulatory and/or Out of Bed Yes REE-([place]-ambulatory/OOB) [ 1226.225 NUTR.MSJOOB] Kcal/Kg value to use for calculation 39 Approximate Energy Requirements Using 1736 kcal/Kg Additional Notes Pro: 45 - 53 (1-1.2 g/kg) Fluids: 1 ml/kcal Nutrition Intervention Change Diet Order: Continue Current Diet Goal #1 Meet 75% of energy/protein needs Anticipated Discharge Needs: Consistent Carbohydrate Diet Follow-Up By: 10/24/19 Additional Comments Follow up for PO intakes
[2019-10-22] MEDS: PANTOPRAZOLE 20 MG TAB PO SCH (10:38)
[2019-10-22] MEDS: LISINOPRIL 5 MG TAB PO SCH (10:38)
[2019-10-22] MEDS: TOPIRAMATE TAB 100 MG TAB PO SCH ×2 (10:38→22:02)
[2019-10-22] MEDS: ENOXAPARIN 40 MG/0.4 ML INJ SUB-Q SCH (10:39)
[2019-10-22] MEDS: ASPIRIN EC 81 MG TAB PO SCH (10:47)
[2019-10-22] MEDS: DULoxetine 30 MG CAP PO SCH (10:47)
[2019-10-22] MEDS: SENNOSIDES 8.6 MG TAB PO SCH ×2 (10:48→22:15)
[2019-10-22] MEDS: ONDANSETRON 4 MG/2 ML INJ IV PRN (15:06)
[2019-10-22 20:07] LABS: Amorphous Crystals,Urine 1+; Bilirubin,Urine NEG (Negative); Blood,Urine NEG (Negative); Color,Urine Yellow (Yellow); Mucus,Urine FEW /HPF; Protein,Urine <15 mg/dL mg/dL (Negative); RBC,Urine < 1.0 /HPF (0.0-6.0); Urobilinogen,Urine < 2.0 mg/dL (<2.0); WBC,Urine < 1.0 /HPF (0.0-6.0)
[2019-10-22] MEDS: MONTELUKAST 10 MG TAB PO SCH (22:16)
[2019-10-23] MEDS: oxyCODONE /ACETAMINOPHEN 5-325MG TAB PO PRN ×5 (02:42→22:29)
[2019-10-23] MEDS: ONDANSETRON 4 MG/2 ML INJ IV PRN ×2 (06:40→15:05)
[2019-10-23] MEDS: glipiZIDE 5 MG TAB PO SCH ×2 (08:17→17:22)
[2019-10-23] MEDS: metFORMIN 500 MG TAB PO SCH ×2 (08:17→17:22)
[2019-10-23] MEDS: TOPIRAMATE TAB 100 MG TAB PO SCH ×2 (09:40→21:42)
[2019-10-23] MEDS: LISINOPRIL 5 MG TAB PO SCH (09:40)
[2019-10-23] MEDS: PANTOPRAZOLE 20 MG TAB PO SCH (09:40)
[2019-10-23] MEDS: ENOXAPARIN 40 MG/0.4 ML INJ SUB-Q SCH (09:41)
[2019-10-23] MEDS: ASPIRIN EC 81 MG TAB PO SCH (09:53)
[2019-10-23] MEDS: SENNOSIDES 8.6 MG TAB PO SCH ×2 (09:54→21:42)
[2019-10-23] MEDS: DULoxetine 30 MG CAP PO SCH (11:54)
[2019-10-23] MEDS: SODIUM CHLORIDE 0.9% 1000 ML 1,000 ML IV SCH (12:00)
--- NOTE | 2019-10-23 17:31 | Progress Note ---
Assessment and Plan Recent left hip fracture status post surgery. PT/OT. Pain control. Diarrhea. Check stool studies. Hypertension. Resume antihypertensive medications. Diabetes mellitus type 2. Continue Accu-Cheks and sliding scale insulin. Urinary retention--[place] D/c'd Disposition. Await placement. Subjective Date of service: 10/23/19 Principal diagnosis: Rt Hip fracture Interval history: Patient is a 64-year-old white female. Referred from [facility] for further care in this facility. She had a fall few days ago and has had surgery at [facility] and currently undergoing some physical therapy. Patient indicates that she was in the bathroom and suddenly slipped and fell resulting in a fracture of her left hip. She denies any headache, denies any head injury, denies any chest pain or shortness of breath, no fever or chills. She complains of having pain on the left hip and has been taking some oral analgesic medication with some relief. S/p ORIF Rt Hip Objective - Constitutional Vitals: Vital Signs - 12hr 10/23/19 10/23/19 10/23/19 06:40 07:18 07:40 Temperature 98.0 F Pulse Rate 66 Respiratory 16 18 17 Rate Blood Pressure 119/59 O2 Sat by Pulse 98 Oximetry 10/23/19 10/23/19 10/23/19 09:19 09:40 11:13 Temperature 98.2 F Pulse Rate 66 60 Respiratory 18 16 Rate Blood Pressure 119/59 126/62 O2 Sat by Pulse 98 100 Oximetry General appearance: Present: no acute distress, well-nourished - EENT Eyes: PERRL, EOM intact ENT: hearing intact, clear oral mucosa Ears: bilateral: normal - Neck Neck: supple, normal ROM - Respiratory Respiratory effort: normal Respiratory: bilateral: CTA - Breasts Breasts: normal - Cardiovascular Rhythm: regular Heart Sounds: Present: S1 & S2. Absent: gallop, rub Extremities: pulses intact, No edema, normal color, abnormal (Rt Hip decreased ROM) - Gastrointestinal General gastrointestinal: Present: soft, non-tender, non-distended, normal bowel sounds - Genitourinary Female genitourinary: normal - Integumentary Integumentary: clear, warm, dry - Musculoskeletal Musculoskeletal: 1, strength equal bilaterally - Neurologic Neurologic: moves all extremities - Psychiatric Psychiatric: memory intact, appropriate mood/affect, intact judgment & insight - Labs CBC & Chem 7: 10/21/19 05:50 10/21/19 05:50 Labs: Abnormal lab results 10/22/19 10/23/19 10/23/19 Range/Units 22:03 07:26 11:25 POC Glucose 159 H 204 H 117 H (70-105)
[2019-10-23] MEDS ORDERED: HYDROmorphone 1 MG/1 ML INJ IV PRN (18:01)
[2019-10-23] MEDS: MONTELUKAST 10 MG TAB PO SCH (21:42)
[2019-10-24] MEDS: oxyCODONE /ACETAMINOPHEN 5-325MG TAB PO PRN ×5 (02:14→19:54)
[2019-10-24] MEDS: SODIUM CHLORIDE 0.9% 1000 ML 1,000 ML IV SCH (06:39)
[2019-10-24] MEDS: TOPIRAMATE TAB 100 MG TAB PO SCH ×2 (09:03→21:56)
[2019-10-24] MEDS: LISINOPRIL 5 MG TAB PO SCH (09:03)
[2019-10-24] MEDS: metFORMIN 500 MG TAB PO SCH ×2 (09:03→17:25)
[2019-10-24] MEDS: glipiZIDE 5 MG TAB PO SCH ×2 (09:04→17:25)
[2019-10-24] MEDS: ENOXAPARIN 40 MG/0.4 ML INJ SUB-Q SCH (09:04)
[2019-10-24] MEDS: PANTOPRAZOLE 20 MG TAB PO SCH (09:04)
[2019-10-24] MEDS: ASPIRIN EC 81 MG TAB PO SCH (09:06)
[2019-10-24] MEDS: DULoxetine 30 MG CAP PO SCH (09:06)
[2019-10-24] MEDS: SENNOSIDES 8.6 MG TAB PO SCH ×2 (09:07→22:01)
[2019-10-24] MEDS: ONDANSETRON 4 MG/2 ML INJ IV PRN (13:04)
--- NOTE | 2019-10-24 17:54 | Progress Note ---
Assessment and Plan Assessment and plan: Recent left hip fracture status post surgery. PT/OT. Pain control. Diarrhea. Check stool studies. cdiff results still pending Hypertension. Resume antihypertensive medications. Diabetes mellitus type 2. Continue Accu-Cheks and sliding scale insulin. Disposition. Await placement. discussed with case management History Interval history: Left hip pain Hospitalist Physical - Physical exam Narrative exam: Gen: Not in acute distress, lying in bed, malnourished HEENT: Normocephalic, atraumatic Neck: supple, no JVD Heart: S1 and S2 reg, no murmurs, rubs or gallop Lungs: clear to auscultation bilaterally, no crackles Abd: soft, NT, non distended, normal BS Ext: No edema, no clubbing, no cyanosis Neuro:Awake,alert, oriented X 3, moves all ext - Constitutional Vitals: Temp Pulse Resp BP Pulse Ox 99.1 F 70 18 141/58 100 10/24/19 16:47 10/24/19 16:47 10/24/19 16:47 10/24/19 16:47 10/24/19 16:47 General appearance: Present: no acute distress Results - Labs CBC & Chem 7: 10/25/19 07:33 10/25/19 07:33 Labs: Laboratory Last Values WBC 6.1 K/mm3 (4.5-11.0) 10/21/19 05:50 RBC 2.99 M/mm3 (3.65-5.03) L 10/21/19 05:50 Hgb 8.1 gm/dl (10.1-14.3) L 10/21/19 05:50 Hct 24.5 % (30.3-42.9) L 10/21/19 05:50 MCV 82 fl (79-97) 10/21/19 05:50 MCH 27 pg (28-32) L 10/21/19 05:50 MCHC 33 % (30-34) 10/21/19 05:50 RDW 16.3 % (13.2-15.2) H 10/21/19 05:50 Plt Count 374 K/mm3 (140-440) 10/21/19 05:50 Lymph % (Auto) 23.5 % (13.4-35.0) 10/21/19 05:50 [place] % (Auto) 6.5 % (0.0-7.3) 10/21/19 05:50 Eos % (Auto) 4.1 % (0.0-4.3) 10/21/19 05:50 Baso % (Auto) 0.6 % (0.0-1.8) 10/21/19 05:50 Lymph # 1.4 K/mm3 (1.2-5.4) 10/21/19 05:50 [place] # 0.4 K/mm3 (0.0-0.8) 10/21/19 05:50 Eos # 0.2 K/mm3 (0.0-0.4) 10/21/19 05:50 Baso # 0.0 K/mm3 (0.0-0.1) 10/21/19 05:50 Seg Neutrophils % 65.3 % (40.0-70.0) 10/21/19 05:50 Seg Neutrophils # 4.0 K/mm3 (1.8-7.7) 10/21/19 05:50 PT 13.6 Sec. (12.2-14.9) 10/19/19 06:44 INR 1.03 (0.87-1.13) 10/19/19 06:44 APTT 32.8 Sec. (24.2-36.6) 10/19/19 06:44 Sodium 137 mmol/L (137-145) 10/21/19 05:50 Potassium 3.4 mmol/L (3.6-5.0) L 10/21/19 05:50 Chloride 108.4 mmol/L (98-107) H 10/21/19 05:50 Carbon Dioxide 18 mmol/L (22-30) L 10/21/19 05:50 Anion Gap 14 mmol/L 10/21/19 05:50 BUN 13 mg/dL (7-17) 10/21/19 05:50 Creatinine 0.4 mg/dL (0.7-1.2) L 10/21/19 05:50 Estimated GFR > 60 ml/min 10/21/19 05:50 BUN/Creatinine Ratio 33 % 10/21/19 05:50 Glucose 209 mg/dL (65-100) H 10/21/19 05:50 POC Glucose 92 (70-105) 10/24/19 17:00 Calcium 8.1 mg/dL (8.4-10.2) L 10/21/19 05:50 Urine Color Yellow (Yellow) 10/22/19 17:30 Urine Turbidity Cloudy (Clear) 10/22/19 17:30 Urine pH 6.0 (5.0-7.0) 10/22/19 17:30 Ur Specific [place] 1.021 (1.003-1.030) 10/22/19 17:30 Urine Protein <15 mg/dl mg/dL (Negative) 10/22/19 17:30 Urine Glucose (UA) 50 mg/dL (Negative) 10/22/19 17:30 Urine Ketones Neg mg/dL (Negative) 10/22/19 17:30 Urine Blood Neg (Negative) 10/22/19 17:30 Urine Nitrite Neg (Negative) 10/22/19 17:30 Urine Bilirubin Neg (Negative) 10/22/19 17:30 Urine Urobilinogen < 2.0 mg/dL (<2.0) 10/22/19 17:30 Ur Leukocyte Esterase Neg (Negative) 10/22/19 17:30 Urine WBC (Auto) < 1.0 /HPF (0.0-6.0) 10/22/19 17:30 Urine RBC (Auto) < 1.0 /HPF (0.0-6.0) 10/22/19 17:30 Amorphous Crystals 1+ 10/22/19 17:30 Urine Mucus Few /HPF 10/22/19 17:30 Active Medications - Current Medications Current Medications: Generic Name Dose Route Start Last Admin Trade Name Freq PRN Reason Stop Dose Admin Acetaminophen 650 mg 10/19/19 03:09 Tylenol PO Q4H PRN Pain MILD(1-3)/Fever >100.5/[place] Aspirin 81 mg 10/20/19 10:00 10/24/19 09:06 Halfprin Ec PO Not Given QDAY [facility] Duloxetine HCl 30 mg 10/20/19 10:00 10/24/19 09:06 Cymbalta PO Not Given QDAY [facility] Enoxaparin Sodium 40 mg 10/19/19 08:00 10/24/19 09:04 Enoxaparin SUB-Q 40 mg QDAY [facility] Administration Glipizide 5 mg 10/19/19 17:00 10/24/19 17:25 Glucotrol PO 5 mg BIDDIAB SALLY Administration Hydromorphone HCl 1 mg 10/23/19 18:01 Dilaudid IV Q3H PRN Pain , Severe (7-10) Sodium Chloride 1,000 mls @ 75 mls/hr 10/19/19 03:15 10/24/19 06:39 Nacl 0.9% 1000 Ml IV 75 mls/hr DIRECT SALLY Administration Lisinopril 2.5 mg 10/20/19 10:00 10/24/19 09:03 Zestril PO 2.5 mg QDAY SALLY Administration Magnesium Hydroxide 30 ml 10/19/19 03:09 Milk Of Magnesia PO Q4H PRN Constipation Metformin HCl 1,000 mg 10/19/19 17:00 10/24/19 17:25 Glucophage PO 1,000 mg BIDDIAB SALLY Administration Methocarbamol 750 mg 10/19/19 14:00 10/24/19 15:17 Robaxin PO 750 mg TID SALLY Administration Montelukast Sodium 10 mg 10/19/19 22:00 10/23/19 21:42 Singulair PO 10 mg QHS SALLY Administration Ondansetron HCl 4 mg 10/19/19 03:09 10/24/19 13:04 Zofran IV 4 mg Q8H PRN Administration Nausea And Vomiting Oxycodone/Acetaminophen 2 tab 10/20/19 12:56 10/24/19 15:17 Percocet 5/325 PO 2 tab Q4H PRN Administration Pain, Moderate (4-6) Pantoprazole Sodium 20 mg 10/19/19 13:58 10/24/19 09:04 Protonix PO 20 mg QDAY SALLY Administration Senna 8.6 mg 10/19/19 22:00 10/24/19 09:07 Senokot PO Not Given BID SALLY Sodium Chloride 10 ml 10/19/19 08:00 10/24/19 09:07 Sodium Chloride Flush Syringe 10 Ml IV 10 ml BID SALLY Administration Sodium Chloride 10 ml 10/19/19 03:09 Sodium Chloride Flush Syringe 10 Ml IV PRN PRN LINE FLUSH Sumatriptan Succinate 100 mg 10/19/19 13:18 Imitrex PO Q24H PRN Migraine Headache Topiramate 100 mg 10/19/19 22:00 10/24/19 09:03 Topamax PO 100 mg BID SALLY Administration Nutrition/Malnutrition Assess - Dietary Evaluation Nutrition/Malnutrition Findings: Nutrition Notes Start: 10/19/19 11:43 Freq: Status: Active Protocol: Document 10/24/19 10:07 CT (Rec: 10/24/19 10:22 CT [id number]) Co-Sign 10/24/19 10:07 Nutrition Notes Initial or Follow up Reassessment Current Diagnosis Diabetes,Hypertension Other Pertinent Diagnosis anemia, arthritis, s/p left hip fx/surgery Current Diet Consistent CHO Labs/Tests POC Glu 187 Pertinent Medications NS 75 ml/hr Merformin Height 5 ft 2 in Weight 44.5 kg [place] Body Weight (kg) 50.00 BMI 17.9 Weight Status Underweight Subjective/Other Information Follow up for PO intakes. Pt ate 50% of breakfast this am. Per ADLs, pt eating 25-50% of meals. Pt does not want ONS d/ t not liking them. Pt stated issues chewing but did not want a mechanical soft diet d/ t being able to cut own foods and eat them easily. Pt did not want bland foods to help with N/V. Pt last experienced nausea this am. Pt appetite is not good, stating that it comes and goes. Pt stated that she "is a grazer and does not like to eat large meals all at once." Pt stated that she is a vegetarian. Percent of energy/protein needs met: 55% energy / 70% protein Burn Absent Trauma Absent GI Symptoms Nausea Current % PO Poor (25-49%) Minimum of two criteria Yes Energy Intake (severe) < or equal to 50% Estimated Energy Requirement > or equal to 5 days Interpretation of Weight Loss (severe) >5% in 1 month Body Fat Depletion Moderate depletion (severe) Muscle Mass Mild Depletion (non-severe) #2 Nutrition Diagnosis Malnutrition Diagnosis Progress(for reassessment Continues documentation) #1 Nutrition Diagnosis Inadequate energy intake Diagnosis Progress(for reassessment Continues documentation) Is patient on ventilator? No Is Patient Ambulatory and/or Out of Bed Yes REE-([place]-ambulatory/OOB) [ 7196.225 NUTR.MSJOOB] Kcal/Kg value to use for calculation 35 Approximate Energy Requirements Using 1558 kcal/Kg Additional Notes Protein needs: 53-67 g/kg/day (1.2-1.5 g/kg/day) Fluid needs: 1 ml/kcal/day Nutrition Intervention Change Diet Order: Continue Current Diet Goal #1 Meet 75% of energy/protein needs Goal #2 wt gain/maintenance Anticipated Discharge Needs: Consistent Carbohydrate Diet Follow-Up By: 10/26/19 Additional Comments Follow up for PO intakes. Possible Ensure clear
[2019-10-24] MEDS: MONTELUKAST 10 MG TAB PO SCH (21:56)
[2019-10-25] MEDS: oxyCODONE /ACETAMINOPHEN 5-325MG TAB PO PRN ×5 (00:34→22:16)
[2019-10-25] MEDS: ONDANSETRON 4 MG/2 ML INJ IV PRN ×2 (04:28→19:22)
[2019-10-25] MEDS ORDERED: ASPIRIN EC 81 MG TAB PO ONE (08:00)
[2019-10-25 08:05] LABS: Hematocrit 25.5 % (30.3-42.9); Hemoglobin 8.2 gm/dl (10.1-14.3); Mean Corpuscular HGB Conc 32 % (30-34); Mean Corpuscular Volume 84 fl (79-97); Platelet Count 580 K/mm3 (140-440); Red Blood Count 3.02 M/mm3 (3.65-5.03); Red Cell Distribution Width 17.2 % (13.2-15.2)
[2019-10-25 08:20] LABS: BUN/Creatinine Ratio 23; Blood Urea Nitrogen 9 mg/dL (7-17); Calcium 7.9 mg/dL (8.4-10.2); Hemolysis Index 94
[2019-10-25] MEDS: ENOXAPARIN 40 MG/0.4 ML INJ SUB-Q SCH ×2 (08:23→10:14)
[2019-10-25] MEDS: ASPIRIN EC 81 MG TAB PO SCH ×2 (08:24→13:14)
[2019-10-25] MEDS: DULoxetine 30 MG CAP PO SCH ×2 (08:24→10:19)
[2019-10-25] MEDS: LISINOPRIL 5 MG TAB PO SCH ×2 (08:24→10:16)
[2019-10-25] MEDS: metFORMIN 500 MG TAB PO SCH ×2 (08:25→17:03)
[2019-10-25] MEDS: glipiZIDE 5 MG TAB PO SCH ×2 (08:50→17:03)
[2019-10-25] MEDS: PANTOPRAZOLE 20 MG TAB PO SCH ×2 (08:51→13:15)
[2019-10-25] MEDS: TOPIRAMATE TAB 100 MG TAB PO SCH ×3 (08:52→22:24)
[2019-10-25] MEDS: SENNOSIDES 8.6 MG TAB PO SCH ×2 (09:29→22:16)
[2019-10-25] MEDS ORDERED: MAGNESIUM SULFATE 4 GM/100 ML BAG IV ONE (10:00)
[2019-10-25] MEDS: MONTELUKAST 10 MG TAB PO SCH (22:24)
[2019-10-26] MEDS: oxyCODONE /ACETAMINOPHEN 5-325MG TAB PO PRN ×5 (02:58→21:41)
[2019-10-26] MEDS: ONDANSETRON 4 MG/2 ML INJ IV PRN ×2 (08:25→13:30)
[2019-10-26] MEDS: metFORMIN 500 MG TAB PO SCH ×2 (11:03→18:01)
[2019-10-26] MEDS: glipiZIDE 5 MG TAB PO SCH ×2 (11:04→18:01)
[2019-10-26] MEDS: ENOXAPARIN 40 MG/0.4 ML INJ SUB-Q SCH (11:04)
[2019-10-26] MEDS: TOPIRAMATE TAB 100 MG TAB PO SCH ×2 (11:04→21:40)
[2019-10-26] MEDS: ASPIRIN EC 81 MG TAB PO SCH (14:54)
[2019-10-26] MEDS: DULoxetine 30 MG CAP PO SCH (14:54)
[2019-10-26] MEDS: LISINOPRIL 5 MG TAB PO SCH (14:58)
[2019-10-26] MEDS: PANTOPRAZOLE 20 MG TAB PO SCH (14:59)
[2019-10-26] MEDS: SENNOSIDES 8.6 MG TAB PO SCH (15:02)
--- NOTE | 2019-10-26 17:28 | Progress Note ---
Assessment and Plan Assessment and plan: Recent left hip fracture status post surgery. PT/OT. Pain control. Diarrhea. Check stool studies. cdiff results still pending Hypertension. Resume antihypertensive medications. Diabetes mellitus type 2. Continue Accu-Cheks and sliding scale insulin. Disposition. Await placement. discussed with case management History Interval history: Left hip pain diarrhea Hospitalist Physical - Physical exam Narrative exam: Gen: Not in acute distress, lying in bed, malnourished HEENT: Normocephalic, atraumatic Neck: supple, no JVD Heart: S1 and S2 reg, no murmurs, rubs or gallop Lungs: clear to auscultation bilaterally, no crackles Abd: soft, NT, non distended, normal BS Ext: No edema, no clubbing, no cyanosis Neuro:Awake,alert, oriented X 3, moves all ext - Constitutional Vitals: Temp Pulse Resp BP Pulse Ox 98 F 73 20 123/56 99 10/26/19 16:00 10/26/19 16:00 10/26/19 16:00 10/26/19 16:00 10/26/19 16:00 General appearance: Present: no acute distress Results - Labs CBC & Chem 7: 10/25/19 07:33 10/25/19 07:33 Labs: Laboratory Last Values WBC 8.6 K/mm3 (4.5-11.0) 10/25/19 07:33 RBC 3.02 M/mm3 (3.65-5.03) L 10/25/19 07:33 Hgb 8.2 gm/dl (10.1-14.3) L 10/25/19 07:33 Hct 25.5 % (30.3-42.9) L 10/25/19 07:33 MCV 84 fl (79-97) 10/25/19 07:33 MCH 27 pg (28-32) L 10/25/19 07:33 MCHC 32 % (30-34) 10/25/19 07:33 RDW 17.2 % (13.2-15.2) H 10/25/19 07:33 Plt Count 580 K/mm3 (140-440) H 10/25/19 07:33 Lymph % (Auto) 23.5 % (13.4-35.0) 10/21/19 05:50 [place] % (Auto) 6.5 % (0.0-7.3) 10/21/19 05:50 Eos % (Auto) 4.1 % (0.0-4.3) 10/21/19 05:50 Baso % (Auto) 0.6 % (0.0-1.8) 10/21/19 05:50 Lymph # 1.4 K/mm3 (1.2-5.4) 10/21/19 05:50 [place] # 0.4 K/mm3 (0.0-0.8) 10/21/19 05:50 Eos # 0.2 K/mm3 (0.0-0.4) 10/21/19 05:50 Baso # 0.0 K/mm3 (0.0-0.1) 10/21/19 05:50 Seg Neutrophils % 65.3 % (40.0-70.0) 10/21/19 05:50 Seg Neutrophils # 4.0 K/mm3 (1.8-7.7) 10/21/19 05:50 PT 13.6 Sec. (12.2-14.9) 10/19/19 06:44 INR 1.03 (0.87-1.13) 10/19/19 06:44 APTT 32.8 Sec. (24.2-36.6) 10/19/19 06:44 Sodium 141 mmol/L (137-145) 10/25/19 07:33 Potassium 3.8 mmol/L (3.6-5.0) 10/25/19 07:33 Chloride 108.1 mmol/L (98-107) H 10/25/19 07:33 Carbon Dioxide 17 mmol/L (22-30) L 10/25/19 07:33 Anion Gap 20 mmol/L 10/25/19 07:33 BUN 9 mg/dL (7-17) 10/25/19 07:33 Creatinine 0.4 mg/dL (0.7-1.2) L 10/25/19 07:33 Estimated GFR > 60 ml/min 10/25/19 07:33 BUN/Creatinine Ratio 23 % 10/25/19 07:33 Glucose 144 mg/dL (65-100) H 10/25/19 07:33 POC Glucose 145 (70-105) H 10/26/19 16:15 Calcium 7.9 mg/dL (8.4-10.2) L 10/25/19 07:33 Phosphorus 3.60 mg/dL (2.5-4.5) 10/25/19 07:33 Magnesium 1.40 mg/dL (1.7-2.3) L 10/25/19 07:33 Urine Color Yellow (Yellow) 10/22/19 17:30 Urine Turbidity Cloudy (Clear) 10/22/19 17:30 Urine pH 6.0 (5.0-7.0) 10/22/19 17:30 Ur Specific [place] 1.021 (1.003-1.030) 10/22/19 17:30 Urine Protein <15 mg/dl mg/dL (Negative) 10/22/19 17:30 Urine Glucose (UA) 50 mg/dL (Negative) 10/22/19 17:30 Urine Ketones Neg mg/dL (Negative) 10/22/19 17:30 Urine Blood Neg (Negative) 10/22/19 17:30 Urine Nitrite Neg (Negative) 10/22/19 17:30 Urine Bilirubin Neg (Negative) 10/22/19 17:30 Urine Urobilinogen < 2.0 mg/dL (<2.0) 10/22/19 17:30 Ur Leukocyte Esterase Neg (Negative) 10/22/19 17:30 Urine WBC (Auto) < 1.0 /HPF (0.0-6.0) 10/22/19 17:30 Urine RBC (Auto) < 1.0 /HPF (0.0-6.0) 10/22/19 17:30 Amorphous Crystals 1+ 10/22/19 17:30 Urine Mucus Few /HPF 10/22/19 17:30 Active Medications - Current Medications Current Medications: Generic Name Dose Route Start Last Admin Trade Name Freq PRN Reason Stop Dose Admin Acetaminophen 650 mg 10/19/19 03:09 Tylenol PO Q4H PRN Pain MILD(1-3)/Fever >100.5/[place] Aspirin 81 mg 10/20/19 10:00 10/26/19 14:54 Halfprin Ec PO Not Given QDAY [facility] Duloxetine HCl 30 mg 10/20/19 10:00 10/26/19 14:54 Cymbalta PO Not Given QDAY [facility] Enoxaparin Sodium 40 mg 10/19/19 08:00 10/26/19 11:04 Enoxaparin SUB-Q 40 mg QDAY SALLY Administration Glipizide 5 mg 10/19/19 17:00 10/26/19 11:04 Glucotrol PO 5 mg BIDDIAB SALLY Administration Hydromorphone HCl 1 mg 10/23/19 18:01 Dilaudid IV Q3H PRN Pain , Severe (7-10) Sodium Chloride 1,000 mls @ 75 mls/hr 10/19/19 03:15 10/24/19 06:39 Nacl 0.9% 1000 Ml IV 75 mls/hr DIRECT SALLY Administration Lisinopril 2.5 mg 10/20/19 10:00 10/26/19 14:58 Zestril PO 2.5 mg QDAY SALLY Administration Magnesium Hydroxide 30 ml 10/19/19 03:09 Milk Of Magnesia PO Q4H PRN Constipation Metformin HCl 1,000 mg 10/19/19 17:00 10/26/19 11:03 Glucophage PO 1,000 mg BIDDIAB SALLY Administration Methocarbamol 750 mg 10/19/19 14:00 10/26/19 14:58 Robaxin PO 750 mg TID SALLY Administration Montelukast Sodium 10 mg 10/19/19 22:00 10/25/19 22:24 Singulair PO 10 mg QHS SALLY Administration Ondansetron HCl 4 mg 10/19/19 03:09 10/26/19 13:30 Zofran IV 4 mg Q8H PRN Administration Nausea And Vomiting Oxycodone/Acetaminophen 2 tab 10/20/19 12:56 10/26/19 11:03 Percocet 5/325 PO 2 tab Q4H PRN Administration Pain, Moderate (4-6) Pantoprazole Sodium 20 mg 10/19/19 13:58 10/26/19 14:59 Protonix PO 20 mg QDAY SALLY Administration Senna 8.6 mg 10/19/19 22:00 10/26/19 15:02 Senokot PO Not Given BID SALLY Sodium Chloride 10 ml 10/19/19 08:00 10/26/19 11:04 Sodium Chloride Flush Syringe 10 Ml IV 10 ml BID SALLY Administration Sodium Chloride 10 ml 10/19/19 03:09 Sodium Chloride Flush Syringe 10 Ml IV PRN PRN LINE FLUSH Sumatriptan Succinate 100 mg 10/19/19 13:18 Imitrex PO Q24H PRN Migraine Headache Topiramate 100 mg 10/19/19 22:00 10/25/19 22:24 Topamax PO 100 mg BID SALLY Administration Nutrition/Malnutrition Assess - Dietary Evaluation Nutrition/Malnutrition Findings: Nutrition Notes Start: 10/19/19 11:43 Freq: Status: Active Protocol: Document 10/26/19 13:22 PS (Rec: 10/26/19 13:37 PS [id number]) Co-Sign 10/26/19 13:22 KH Nutrition Notes Initial or Follow up Reassessment Current Diagnosis Diabetes,Hypertension Other Pertinent Diagnosis anemia, arthritis, s/p left hip fx/surgery Current Diet Consistent CHO Labs/Tests POC Glu 146 Pertinent Medications Zofran Milk of Magnesia Height 5 ft 2 in Weight 44.5 kg [place] Body Weight (kg) 50.00 BMI 17.9 Weight Status Underweight Subjective/Other Information F/U for PO intakes. Pt. ate 25 % of breakfast. Pt. ate 100% of lunch yesterday but 0% of dinner d/t not liking food. Pt . states she is still experiencing nausea. Pt. food preferences were noted. Burn Absent Trauma Absent GI Symptoms Nausea Current % PO Poor (25-49%) Minimum of two criteria Yes Energy Intake (severe) < or equal to 50% Estimated Energy Requirement > or equal to 5 days Interpretation of Weight Loss (severe) >5% in 1 month Body Fat Depletion Moderate depletion (severe) Muscle Mass Mild Depletion (non-severe) #2 Diagnosis Progress(for reassessment Continues documentation) #1 Diagnosis Progress(for reassessment Continues documentation) Is patient on ventilator? No Is Patient Ambulatory and/or Out of Bed Yes REE-([place]-ambulatory/OOB) [ 1226.225 NUTR.MSJOOB] Kcal/Kg value to use for calculation 35 Approximate Energy Requirements Using 1558 kcal/Kg Additional Notes Protein needs: 53-67 g/kg/day (1.2-1.5 g/kg/day) Fluid needs: 1 ml/kcal/day Nutrition Intervention Change Diet Order: Continue Current Diet Goal #1 Meet 75% of energy/protein needs Goal #2 wt gain/maintenance Anticipated Discharge Needs: Consistent Carbohydrate Diet Follow-Up By: 12/23/19 Additional Comments F/U for PO intakes and food preferences. F/U for BG labs for possible ensure clear
[2019-10-26] MEDS: MONTELUKAST 10 MG TAB PO SCH (21:40)
[2019-10-27] MEDS: SENNOSIDES 8.6 MG TAB PO SCH ×2 (04:07→11:02)
[2019-10-27] MEDS: oxyCODONE /ACETAMINOPHEN 5-325MG TAB PO PRN ×5 (04:08→20:54)
[2019-10-27] MEDS: ONDANSETRON 4 MG/2 ML INJ IV PRN (07:44)
[2019-10-27] MEDS ORDERED: PROTEASE PO SCH (08:00)
[2019-10-27] MEDS ORDERED: [UNRECOGNIZED DRUG - OTHER] PO SCH (08:00)
[2019-10-27] MEDS ORDERED: LIPASE PO SCH (08:00)
[2019-10-27] MEDS ORDERED: AMYLASE PO SCH (08:00)
[2019-10-27 08:37] LABS: BUN/Creatinine Ratio 20; Blood Urea Nitrogen 10 mg/dL (7-17); Hemolysis Index 4
[2019-10-27] MEDS: glipiZIDE 5 MG TAB PO SCH ×2 (09:05→17:15)
[2019-10-27] MEDS: metFORMIN 500 MG TAB PO SCH ×2 (09:05→17:14)
[2019-10-27] MEDS: LISINOPRIL 5 MG TAB PO SCH (10:57)
[2019-10-27] MEDS: PANTOPRAZOLE 20 MG TAB PO SCH (10:57)
[2019-10-27] MEDS: TOPIRAMATE TAB 100 MG TAB PO SCH (10:57)
[2019-10-27] MEDS: ASPIRIN EC 81 MG TAB PO SCH (11:02)
[2019-10-27] MEDS: DULoxetine 30 MG CAP PO SCH (11:02)
[2019-10-27] MEDS: ENOXAPARIN 40 MG/0.4 ML INJ SUB-Q SCH (11:03)
[2019-10-27] MEDS: LIPASE 12,000/PROTEASE 38,000/AMYLASE 60,000 (UNITS) DR CAP PO SCH ×2 (13:07→17:15)
--- NOTE | 2019-10-27 14:41 | Discharge Summary ---
Providers - Providers Date of Admission: 10/19/19 02:50 Date of discharge: 10/27/19 Attending physician: SAGE LOVE 10/19/19 03:16 Physical Therapy Evaluation and Treat [CONS] Routine Comment: Reason For Exam: left hip fracture s/p surgery 10/19/19 12:24 Occupational Therapy Evaluate and Treat [CONS] Routine Comment: Reason For Exam: generalized weakness Primary care physician: ANTONETTE GIBBONS Hospitalization Condition: Fair Hospital course: Patient is a 64-year-old white female. Referred from [facility] for further care in this facility.She had a fall few days ago and has had surgery at [facility] and currently undergoing some physical therapy.Patient indicates that she was in the bathroom and suddenly slipped and fell resulting in a fracture of her left hip. She denies any headache, denies any head injury, denies any chest pain or shortness of breath, no fever or chills.She complains of having pa in on the left hip and has been taking some oral analgesic medication with some relief. She was admitted, evaluated by Orthopedic Surgeon. case management was consulted for placement and this took a long time and she was discharged to SNF facility on 10/27/2019 Recent left hip fracture status post surgery. PT/OT. Pain control. Diarrhea. cdiff neg Hypertension. Resumed antihypertensive medications. Diabetes mellitus type 2. Continue Accu-Cheks and sliding scale insulin. Total time spent on discharge 32 minute Disposition: [id number] - Discharge Diagnoses (1) Acute gastroenteritis Status: Acute (2) Closed left hip fracture Status: Acute (3) Diabetes mellitus Status: Acute (4) Hypertension Status: Acute Core Measure Documentation - Palliative Care Palliative Care/ Comfort Measures: Not Applicable - Core Measures Any of the following diagnoses?: none Exam - Constitutional Vitals: Temp Pulse Resp BP Pulse Ox 97.6 F 63 18 139/67 99 10/27/19 11:34 10/27/19 11:34 10/27/19 11:34 10/27/19 11:34 10/27/19 11:34 Plan Activity: advance as tolerated Diet: low fat, low cholesterol, low salt, diabetic Plan of Treatment: 1.Follow up with PCP in 1 week. 2.Follow up with Orthopedic Surgeon in 1 week. Follow up with: ANTONETTE GIBBONS MD [Primary Care Provider] - 7 Days Prescriptions: Enoxaparin 40 mg SUB-Q QDAY 42 Days syringe Loperamide [Imodium] 2 mg PO Q2HR PRN #10 capsule PRN Reason: Diarrhea Magnesium Oxide 400 mg PO BID #28 tablet oxyCODONE /ACETAMINOPHEN [Percocet 5/325 mg] 1 tab PO Q4HR PRN #10 PRN Reason: Pain , Severe (7-10)
[2019-10-27 17:36] VITALS: BP 135/58
== END 2019-10-27 21:25 | DRG 536 ==
LOC: 3A 21:30 → UNDOADMIN 21:30 → 3B 10-19 02:50 → 3B-SURG 10-19 09:27
PROVIDERS: ADMIT Internal Medicine Geriatric Medicine; ATTEND Internal Medicine
DX: S72.002A Fracture of unspecified part of neck of left femur, initial encounter for closed fracture (principal); R19.7 Diarrhea, unspecified; R33.9 Retention of urine, unspecified; E11.9 Type 2 diabetes mellitus without complications; I10 Essential (primary) hypertension; W01.0XXA Fall on same level from slipping, tripping and stumbling without subsequent striking against object, initial encounter; F17.210 Nicotine dependence, cigarettes, uncomplicated; Z90.710 Acquired absence of both cervix and uterus; Z88.2 Allergy status to sulfonamides; Z91.040 Latex allergy status; Z91.09 Other allergy status, other than to drugs and biological substances; Z88.8 Allergy status to other drugs, medicaments and biological substances; Z88.1 Allergy status to other antibiotic agents; Z79.899 Other long term (current) drug therapy; Y93.89 Activity, other specified; Y92.091 Bathroom in other non-institutional residence as the place of occurrence of the external cause; Y99.8 Other external cause status
CPT/HCPCS: 36415; 80048; 81001; 82962; 83735; 84100; 85007; 85025; 85027; 85610; 85730; 87045; 87493; G0378; J1650; J2270; J2405; J3475; J7030